=== PATIENT | male | born 1975 | race Caucasian/White ===

== ENCOUNTER 2018-07-09 08:47 | Outpatient (CLI) | payer OTHER ==
--- NOTE | 2018-07-09 16:43 | CARDIAC PROCEDURE NOTE ---
DATE OF SERVICE: 07/09/2018 Physician: Indira Longoria MD, [facility] INDICATION: Chest pain. CARDIAC RISK FACTORS: Male gender, family history of heart disease, overweight patient. SUMMARY: After signing informed consent, the patient completed a Reynaldo treadmill stress test with Echo imaging. Resting heart rate 61, peak heart rate 154 (87% predicted maximum heart rate for age). Resting blood pressure 148/72, peak blood pressure 190/90. The patient exercised for 8 minutes and 27 seconds on a Reynaldo protocol. He reached a peak heart rate of 154 (87% PMHR), 10.2 METs. Patient had moderate shortness of breath and no chest pain (before the test, the patient reported that his feelings of chest pain were actually "feelings of heart flutter with exertion, not real chest pain.") BASELINE ELECTROCARDIOGRAM: Normal sinus rhythm, rSr' in V1 and V2. PEAK ELECTROCARDIOGRAM: No ischemic ST segments or T wave changes. IMPRESSION: 1. Fair exercise tolerance. 2. No ischemic changes by electrocardiogram criteria on this Reynaldo protocol stress test at an adequate level of stress. 3. Echocardiogram images reported separately. TD: 07/09/2018 16:09 ADOLFO
== END 2018-07-09 08:48 | disposition home or self-care (01) ==
LOC: DI 08:47
PROVIDERS: ATTEND Family Medicine
DX: R07.9 Chest pain, unspecified (principal)
CPT/HCPCS: 93351